=== PATIENT | male | born 1990 ===

== ENCOUNTER 2024-08-03 11:27 | Emergency (ER) | payer SELFPAY ==
[2024-08-03 11:27] VITALS: BMI 23.1
[2024-08-03 11:39] VITALS: BP 116/84; PULSE 97; RESP 17; TEMP 36.7; O2SAT 100
--- NOTE | 2024-08-03 12:07 | XR_ITS ---
Examination: Hand, right 2 views Technique: Hand AP, lateral 2 views Date and time of exam: August 03, 2024 1211 hrs. Indications: Right hand swelling beginning 2 days ago. Findings: Old fracture deformity fifth metacarpal Soft tissue swelling dorsum of the hand No cortical bone destruction No opaque foreign body No fracture Impression: No opaque foreign body
--- NOTE | 2024-08-03 12:07 | PD.EDRME ---
Rapid Medical Screening Exam E Arrival date/time: 08/03/24 11:27 This is a 34-year-old male that comes in with complaints of right hand pain that started about 2 to 3 days ago after fixing his girlfriend's car. Patient thinks he got bit by spider. Patient has swelling under his right third digit and above third digit. Patient denies any fever or chills. Patient denies any other symptoms I have greeted and performed a focused initial assessment of this patient. Initial appropriate labs ordered at this time. A comprehensive ED assessment and evaluation of the patient and analysis of all test and completion of medical decision making process will be conducted by additional ED provider. Chief Complaint: Animal Bite Time Seen by Provider: 08/03/24 11:52 Vital signs: Vital Signs Temperature 98.1 F 08/03/24 11:39 Pulse Rate 97 08/03/24 11:39 Respiratory Rate 17 08/03/24 11:39 Blood Pressure 116/84 08/03/24 11:39 Pulse Oximetry (%) 100 08/03/24 11:39 Oxygen Delivery Method Room Air 08/03/24 11:39
[2024-08-03] MEDS: IBUPROFEN TAB 400 MG TABLET 800 MG PO (12:12)
[2024-08-03 12:16] LABS: Lactate (Lactic Acid) 1.1 mMol/L (0.4-2.0)
[2024-08-03 12:20] LABS: Basophils # (Auto) 0.1 Thou/mm3 (0.0-0.2); Basophils % (Auto) 1 % (0-2.5); Eosinophils # (Auto) 0.2 Thou/mm3 (0.0-0.5); Eosinophils % (Auto) 2 % (0-10); Hemoglobin 15.6 g/dL (13.5-16.0); Immature Granulocytes % (Auto) 0 % (0-0); Immature Granulocytes Auto 0.03 Thou/mm3 (0.00-0.00); Lymphocytes % (Auto) 17 % (10-50); Mean Corpuscular HGB Conc 33.2 g/dl (31.0-37.0); Mean Corpuscular Hemoglobin 29.3 pg (25.0-35.0); Mean Corpuscular Volume 88 fL (80-100); Monocytes # (Auto) 0.9 Thou/mm3 (0.0-0.8); Monocytes % (Auto) 8 % (0-12); Neutrophils # (Auto) 8.8 Thou/mm3 (1.8-7.7); Neutrophils % (Auto) 73 % (37-80); Nucleated Red Blood Cell % 0 /100 WBC (0); Platelet Count 398 Thou/mm3 (140-440); RDW Standard Deviation 44.2 fL (35.1-43.9); Red Blood Count 5.32 Miln/mm3 (4.50-5.90); White Blood Count 12.1 Thou/mm3 (3.8-10.6)
--- NOTE | 2024-08-03 12:41 | PD.EDANIML ---
ED Animal Bite RME/HPI General Chief Complaint: Animal Bite Stated Complaint: BIT BY SOEMTHING Time Seen by Provider: 08/03/24 11:52 Arrival date/time: 08/03/24 11:27 Limitations: no limitations RME / HPI RME / HPI narrative: 08/03/24 11:27 This is a 34-year-old male that comes in with complaints of right hand pain that started about 2 to 3 days ago after fixing his girlfriend's car. Patient thinks he got bit by spider. Patient has swelling under his right third digit and above third digit. Patient denies any fever or chills. Patient denies any other symptoms I have greeted and performed a focused initial assessment of this patient. Initial appropriate labs ordered at this time. A comprehensive ED assessment and evaluation of the patient and analysis of all test and completion of medical decision making process will be conducted by additional ED provider. 08/03/2024 12:51 PM Patient is a 34-year-old male with no past medical or surgical history. He is here today with atraumatic right hand pain, swelling, for the past 2 to 3 days. He does not recall any trauma. He has no active drainage or bleeding. He has no open wounds. He is unable to flex his 3rd and 4th finger. He has significant edema at the proximal 3rd and 4th digit that extends to the dorsum of the right hand. There is diffuse erythema, mild induration, and warmth. He does not recall his last tetanus vaccine. Denies any drug allergies. States he does not take any medications. Related Data Allergies Allergy/AdvReac Type Severity Reaction Status Date / Time Unable to Assess Allergy Verified 08/03/24 11:29 Review of Systems Review of Systems Systems Reviewed: All systems reviewed, normal except as documented ED Exam General Limitations: Present no limitations General appearance: Present alert and in no apparent distress Head Head exam: Present atraumatic Eye Eye exam: Present normal appearance, PERRL and EOMI ENT ENT exam: Present normal exam, normal oropharynx and mucous membranes moist Neck Neck exam: Present normal inspection, full ROM and trachea midline Chest Chest inspection: Present normal inspection and symmetric chest wall rise Respiratory Respiratory exam: Present normal lung sounds bilaterally Cardiovascular Cardiovascular exam: Present regular rate, normal rhythm and normal heart sounds Abdominal Exam Abdominal exam: Present soft and normal bowel sounds Extremities Exam Extremities exam: Present other (There is diffuse erythema of the right and fourth digits. There is a sausagelike appearance to the proximal aspect of the third and right fourth finger. There is erythema that extends to the dorsal aspect of the right hand. Station the hand is held in a flexed position. Patient is unable to exte) Back Exam Back exam: Present normal inspection and full ROM Neurological Exam Neurological exam: Present alert, oriented X3 and CN II-XII intact Psychiatric Psychiatric exam: Present normal affect and normal mood Skin Skin exam: Present warm, dry and other (There is diffuse with their erythema and edema at the base of the right and fourth right finger. This extends to the dorsal aspect of the right hand.) Course Quality Measures none Orders Category Date Time Status IV [Insert IV] NOW Care 08/03/24 12:46 Active TDap [Obtain Tdap Consent] X1 Care 08/03/24 12:52 Active Referral - Intraoperative Neuro Tech Stat Cons 08/03/24 12:57 Active Transfer to another facility [Transfer/Discharge] Stat Discharge 08/03/24 12:49 Active XR hand RT 2V Stat Exams 08/03/24 12:07 Completed Blood Culture (Lab) Stat Lab 08/03/24 12:57 Received CBC Stat Lab 08/03/24 12:12 Completed CRP [C-Reactive Protein] Stat Lab 08/03/24 12:12 Completed Comprehensive Metabolic Panel Stat Lab 08/03/24 12:12 Completed Lactate (Lactic Acid) Stat Lab 08/03/24 12:12 Completed Procalcitonin Stat Lab 08/03/24 12:12 Completed Ibuprofen Tab [Motrin Tab] Med 08/03/24 12:08 Discontinued 800 mg PO X1 ONE Piper/Tazo Inj [Zosyn Inj] 4.5 gm Med 08/03/24 12:48 Discontinued Sodium Chloride 0.9% (Pop) [NS 0.9% mini bag] 100 ml IV X1 Vancomycin Inj 2,000 mg Med 08/03/24 12:48 Active Sodium Chloride 0.9% 500 ml [Ns] 500 ml IV X1 Vital Signs Vital signs: Vital Signs Temperature 98.1 F 08/03/24 11:39 Pulse Rate 97 08/03/24 11:39 Respiratory Rate 17 08/03/24 11:39 Blood Pressure 116/84 08/03/24 11:39 Pulse Oximetry (%) 100 08/03/24 11:39 Oxygen Delivery Method Room Air 08/03/24 11:39 Animal Bite MDM Narrative MDM Narrative:: 34-year-old male is here today of erythema, swelling, pain and without trauma to the right fingers and hand. He has no chronic medical history. He has no drug allergies. He has a mild leukocytosis of 12.1 thousand, metabolic panel reveals a mild hyperkalemia of 40.2 bicarb is 31.3, creatinine is 1.0, CRP is elevated at 2.1. I do believe the patient requires higher level care and needs to be followed by hand surgery, consider going to the OR for a wash and further treatment. Additional orders were provided here including IV antibiotics. Case discussed is to the ER physician. Transfer request was initiated. Unfortunately, patient eloped from the emergency room. Patient data External records reviewed:: None Clinical information provided by:: patient Social determinants that could affect healthcare access:: none Patient has the following chronic illnesses:: n/a How is presenting disease/condition affected by chronic disease/condition?: no chronic disease Evaluation data The following diagnostics were reviewed and interpreted by me:: lab results and radiology exam(s) Lab and/or radiology exams considered but not ordered:: n/a Interpretation Summary: Mild leukocytosis and hyperkalemia. CRP elevated at 2.1 Medications / Prescriptions Medications or Prescriptions considered but not ordered:: n/a Medication administrations:: Medication Administration History Vancomycin HCl 2,000 mg/ (Sodium Chloride) 500 mls @ 150 mls/hr IV X1 ONE Stop: 08/03/24 16:07 Discontinued Medications Piperacillin Sod/Tazobactam (Sod 4.5 gm/ Sodium Chloride) 100 mls @ 200 mls/hr IV X1 ONE Stop: 08/03/24 13:17 Ibuprofen (Ibuprofen Tab 400 Mg Tablet) 800 mg PO X1 ONE Stop: 08/03/24 12:09 Last Admin: 08/03/24 12:12 Dose: 800 mg Documented By: LIBBY See above Consultations Consultation(s) initiated? (list below): Yes Consultation #1 (Physician, Specialty, Details): hand surgery Diagnosis Differential diagnosis animal bite: bite by animal and cat bite Most likely diagnosis given after review of the tests above:: Cellulitis, tenosynovitis Admission Indicated Admission indicated?: indicated Admission Request Was there a request for admission?: No Disposition Plan Disposition Plan: Transfer Discharge Plan Plan Patient Disposition: Elopement Prescriptions/Referrals Referrals: No Primary/Family,Physician [Primary Care Provider] - In 1 week Problem List Clinical Impression: Eloped from emergency department Patient/Caregiver Discharge Instructions Print Language: [place]
[2024-08-03 12:47] LABS: Alanine Aminotransferase 21 U/L (10-49); Albumin, Serum 4.5 gm/dL (3.5-5.0); Albumin/Globulin Ratio 1.6 (1.2-2.2); Alkaline Phosphatase 106 U/L (46-116); Anion Gap 5 (7-16); Aspartate Amino Transferase 16 U/L (0-34); BUN/Creatinine Ratio 7 Ratio (12-20); Bilirubin,Total 0.7 mg/dL (0.3-1.2); Blood Urea Nitrogen 7 mg/dL (9-23); C-Reactive Protein 2.1 mg/dL (0.0-0.9); Calcium 9.5 mg/dL (8.3-10.6); Calcium (Corrected) 9.5 mg/dL (8.5-10.1); Carbon Dioxide 31.3 mMol/L (20.0-31.0); Chloride 100 mMol/L (98-107); Estimated Creatinine Clearance 119.1 mL/min (>60); Globulin 2.8 gm/dL (2.3-3.5); Glucose 103 mg/dL (74-106); Osmolality,Calculated 269 (275-295); Potassium 5.2 mMol/L (3.4-5.1); Procalcitonin 0.06 ng/ml (0.0-0.49); Sodium 136 mMol/L (136-145); Total Protein 7.3 gm/dL (5.7-8.2); eGFR > 60 See Note
--- NOTE | 2024-08-03 13:32 | PC.NURSE ---
WHEN CALLED TO BRING PT BACK TO ROOM HE ASKED IF HIS GIRLFRIEND CAN COME BACK AND THIS TEN [employer] CENT[employer] MANAGER SAID YES SHE CAN HOWEVER SECURITY ADVISED THAT SHE WALKED DOWN THE STREET AND PT STATED I WILL BE RIGHT BACK HE WALKED IN THE DIRECTION AWAY FROM THE HOSPITAL. CHARGE NURSE MADE AWARE
--- NOTE | 2024-08-03 13:32 | PC.CM ---
Addendum entered by Maile Manzano RN 08/03/24 15:07: 1455 Patient left AMA. I called [facility] and I let them know patient left AMA so they can cancel the transfer request. Addendum entered by Maile Manzano RN 08/03/24 13:47: 1325 I spoke to Pema at [facility] and I let her know I faxed over information and pushed over images. She asked to speak to the [place] so I transferred call to him in the ED. Original Note: 1310 I faxed information to [facility] and I pushed over images. 1257 I received a referral to transfer patient for orthopedic hand doctor. Patient had cellulitis of the right a3rd and 4th finger. Concerns for synovitis.
--- NOTE | 2024-08-03 13:58 | PC.NURSE ---
NA X1
--- NOTE | 2024-08-03 14:13 | PC.NURSE ---
NA X2
--- NOTE | 2024-08-03 15:00 | PC.NURSE ---
PATIENT DID NOT RETURN. NO NUMBER AVAILABLE TO CONTACT PT. PT ELOPED AT THIS TIME
== END 2024-08-03 15:01 | disposition left against medical advice (07) ==
PROVIDERS: Nurse Practitioner Family; Emergency Provider Family Medicine
DX: E87.5 Hyperkalemia (principal)
CPT/HCPCS: 36415; 73120; 80053; 83605; 84145; 85025; 86140; 87040; 99283; A9270